=== PATIENT | female | born 1975 | race Hispanic/Latino ===

== ENCOUNTER 2019-01-29 12:37 | Emergency (ER) | payer BC ==
[~2019-01-29] VITALS: Ht 152.4 cm; Wt 144.3 kg
--- OUTSIDE RECORDS SUMMARY | 2019-01-29 12:40 | XMS REPORT | Clinical Summary ---
Author Author [facility] Organization [facility] Address Unknown Phone Unavailable Care Team Providers Care Hvac Installer Name Role Phone PCP Unavailable Allergies No Known Allergies Medications End Date Status Medication Sig Dispensed Refills Start Date Active mirtazapine (REMERON) 30 TK 1 T PO QHS 3 MG tablet 9 Active doxycycline (VIBRAMYCIN) Take 1 Cap by 60 Cap 1 100 MG mouth two 9 capsuleIndications: times daily. Central centrifugal scarring alopecia Active clobetasol (TEMOVATE) Apply 50 mL 3 0.05 % external topically 9 solutionIndications: twice a day Central centrifugal as needed to scarring alopecia scalp Active quetiapine (SEROQUEL) 25 Take 1 Tab by 30 Tab 1 MG tablet mouth 9 nightly. 01/12/2019 Discontinued (*Therapy completed) hydrOXYzine (ATARAX) 10 TK 1 TO 2 TS 0 MG tablet PO QHS PRF 9 ITCHING 01/12/2019 Discontinued (*Therapy completed) sertraline (ZOLOFT) 25 MG TK 1 T PO D 0 tablet 9 01/12/2019 Discontinued (*Therapy completed) busPIRone (BUSPAR) 10 MG TK 1 T PO BID 3 tablet 9 01/12/2019 Discontinued (*Therapy completed) nortriptyline (PAMELOR) TK 1 C PO QHS 3 25 MG capsule 9 01/12/2019 Discontinued (*Therapy completed) clonazepam (KLONOPIN) 0.5 TK 1 T PO QHS 0 MG tablet PRA 9 01/26/2019 Discontinued (*Therapy completed) trazodone (DESYREL) 50 MG Take 3 Tabs 30 Tab 0 tablet by mouth 9 nightly. Take between 1-3 tablets as needed for sleep. Active Problems No known active problems Encounters Care Team Description Date Type Specialty Aram Berg MD Suture/Staple Removal 01/25/2019 Office Visit Dermatology Leni Zelaya MD 01/25/2019 Orders Only Rheumatology Leni Zelaya MD 01/25/2019 Orders Only Rheumatology Leni Zelaya MD Initial Visit 01/20/2019 Office Visit Rheumatology Aram Berg MD 01/20/2019 Orders Only Dermatology Aram Berg MD Skin Check (Hair shedding) 01/15/2019 Office Visit Dermatology Aram Berg MD 01/15/2019 Orders Only Dermatology from Last 3 Months Social History Date Tobacco Use Types Packs/Day Years Used Never Smoker Smokeless Tobacco: Never Used Drinks/Week oz/Week Comments Alcohol Use Not Currently Sex Assigned at Date Recorded Not on file Industry Job Start Date Occupation Not on file Not on file Not on file Travel End Travel History Travel Start No recent travel history available. Last Filed Vital Signs Reading Time Taken Comments Vital Sign 118/84 01/26/2019 10:22 AM JIG BUILDER Blood Pressure 89 01/26/2019 10:22 AM JIG BUILDER Pulse 36.8 C (98.3 F) 01/20/2019 11:20 AM JIG BUILDER Temperature 16 01/26/2019 10:22 AM JIG BUILDER Respiratory Rate 100% 01/20/2019 11:20 AM JIG BUILDER Oxygen Saturation - - Inhaled Oxygen Concentration 64.6 kg (142 lb 6.4 oz) 01/26/2019 10:22 AM JIG BUILDER Weight 162.6 cm (5' 4") 01/26/2019 10:22 AM JIG BUILDER Height 24.44 01/26/2019 10:22 AM JIG BUILDER Body Mass Index Plan of Treatment Health Maintenance Due Date Last Done Comments MAMMOGRAM ANNUAL 1976 TETANUS SHOT (ADULT) 08/20/1991 HIV SCREENING 08/19/1994 CERVICAL CANCER SCREENING 08/19/1997 3 YEAR FOLLOW UP FLU VACCINE > 6 MONTHS Completed 01/13/2019 Procedures Comments Procedure Name Priority Date/Time Associated Diagnosis TSH Routine 01/25/2019 2:01 PM JIG BUILDER T4 FREE Routine 01/25/2019 2:01 PM JIG BUILDER THYROID ANTIBODY GROUP Routine 01/25/2019 SHADE positive (TPO + TG) 2:01 PM JIG BUILDER RPR NON-REFLEX Routine 01/25/2019 SHADE positive QUALITATIVE 2:01 PM JIG BUILDER C-REACTIVE PROTEIN Routine 01/25/2019 SHADE positive 2:01 PM JIG BUILDER COMPREHENSIVE METABOLIC Routine 01/25/2019 SHADE positive PANEL 2:01 PM JIG BUILDER SEDIMENTATION RATE Routine 01/25/2019 SHADE positive MODIFIED WESTERGREN 2:01 PM JIG BUILDER CBC W/AUTO DIFF WITH Routine 01/25/2019 SHADE positive PLATELETS 2:01 PM JIG BUILDER RANDOM URINE Routine 01/25/2019 SHADE positive PROTEIN/CREATININE 2:01 PM JIG BUILDER URINALYSIS, COMPLETE Routine 01/25/2019 SHADE positive W/REFLEX TO CULTURE 2:01 PM JIG BUILDER COMPLEMENT C3 AND C4 Routine 01/25/2019 SHADE positive 2:01 PM JIG BUILDER DERMATOPATHOLOGY REPORT Routine 01/15/2019 12:00 PM JIG BUILDER from Last 3 Months Results * URINALYSIS, COMPLETE W/REFLEX TO CULTURE (01/25/2019 2:01 PM JIG BUILDER) COLOR UA YELLOW YELLOW [facility] CLARITY UA CLEAR CLEAR [facility] SPECIFIC 1.005 1.001 - 1.035 [facility] GRAVITY UA PH UA 7.0 5.0 - 8.0 [facility] GLUCOSE UA NEGATIVE NEGATIVE [facility] BILIRUBIN UA NEGATIVE NEGATIVE [facility] KETONES UA NEGATIVE NEGATIVE [facility] OCCULT BLOOD UA TRACE (A) NEGATIVE [facility] PROTEIN UA NEGATIVE NEGATIVE [facility] NITRITE NEGATIVE NEGATIVE [facility] LEUKOCYTE NEGATIVE NEGATIVE [facility] ESTERASE UA WBC UA 0-5 < OR=5 /HPF [facility] RBC UA NONE SEEN < OR=2 /HPF [facility] SQUAMOUS NONE SEEN < OR=5 /HPF [facility] EPITHELIAL BACTERIA NONE SEEN NONE SEEN /HPF [facility] HYALINE CASTS NONE SEEN NONE SEEN /LPF [facility] REFLEXIVE URINE NO CULTURE INDICATEDComment: [facility] CULTURE Performed at: [facility] [employer] [address] [phone] SHELLEY CARMEN MD Specimen Urine (substance) Resulting Agency Comment Performing Organization Information: Site ID: [facility] Name: [employer] [place] Address: [address] [place] [phone] Director: SHELLEY CARMEN MD Performing Organization Address [facility] Phone Number [place] [phone] * COMPLEMENT C3 AND C4 (01/25/2019 2:01 PM JIG BUILDER) C3 COMPLEMENT 98 83 - 193 mg/dL [facility] C4 COMPLEMENT 26Comment: Performed at: [facility] 15 - 57 mg/dL [facility] [employer] [facility] [address] [address] SHELLEY CARMEN MD Specimen Serum specimen (specimen) Resulting Agency Comment Performing Organization Information: Site ID: [id number] Name: [employer] [facility] [place] Address: [address] [place] [phone] Director: SHELLEY CARMEN MD Performing Organization Address [facility] [place] [address] * RANDOM URINE PROTEIN/CREATININE (01/25/2019 2:01 PM JIG BUILDER) CREATININE 27 20 - 275 mg/dL [facility] URINE URINE PROTEIN NOTE 21 - 161 mg/g creat [facility] Comment: THE PROTEIN VALUE IS LESS THAN 4 MG/DL THEREFORE WE ARE UNABLE TO CALCULATE EXCRETION AND/OR CREATININE RATIO. PROTEIN/CREAT NOTE 0.021 - 0.161 mg/mg [facility] RATIO creat URINE PROTEIN <4 (L)Comment: Performed at: 5 - 24 mg/dL [facility] [employer] [address] [address] SHELLEY CARMEN MD Specimen Urine (substance) Resulting Agency Comment Performing Organization Information: Site ID: [id number] Name: [employer] [facility] [place] Address: [address] [place] [phone] Director: SHELLEY CARMEN MD Performing Organization Address [facility] Phone Number [address] [address] * THYROID ANTIBODY GROUP (TPO + TG) (01/25/2019 2:01 PM JIG BUILDER) THYROGLOBULIN <1 < or=1 IU/mL [facility] ANTIBODY THYROID <1Comment: Performed at: IG <9 IU/mL [facility] PEROXIDASE AB [facility] [address] [place] [address] SHELLEY CARMEN MD Specimen Serum specimen (specimen) Resulting Agency Comment Performing Organization Information: Site ID: Name: [facility] Address: [address] [place] [phone] Director: SHELLEY CARMEN MD Performing Organization Address [facility] Phone Number [facility] [phone] [place] [address] * RPR NON-REFLEX QUALITATIVE (01/25/2019 2:01 PM JIG BUILDER) Pathologist [facility] [place] RPR (DX) W/REFL NON-REACTIVE NON-REACTIVE [facility] TITER AND Comment: CONFIRMATORY REPORT COMMENT: TESTING FASTING:NO Performed at: [facility] [address] [phone] SHELLEY CARMEN MD Specimen Serum specimen (specimen) Resulting Agency Comment Performing Organization Information: Site ID: [id number] Name: [employer] [facility] [place] Address: [address] [place] [phone] Director: SHELLEY CARMEN MD Performing Organization Address [facility] Phone Number [facility] [address] [place] [address] * SEDIMENTATION RATE MODIFIED WESTERGREN (01/25/2019 2:01 PM JIG BUILDER) [facility] ERYTHROCYTE 11Comment: Performed at: [facility] < OR=20 mm/h [facility] SEDIMENTATION [employer] [facility] [place] [address] [address] [facility] [address] SHELLEY CARMEN MD Specimen Blood (substance) Resulting Agency Comment Performing Organization Information: Site ID: [id number] Name: [employer] [facility] [place] Address: [address] [place] [phone] Director: SHELLEY CARMEN MD Performing Organization Address [facility] Phone Number [facility] [address] [place] [address] * CBC W/AUTO DIFF WITH PLATELETS (01/25/2019 2:01 PM JIG BUILDER) [facility] WHITE BLOOD 8.1 3.8 - 10.8 [facility] CELL COUNT Thousand/uL RED BLOOD CELL 4.71 3.80 - 5.10 [facility] COUNT Million/uL HEMOGLOBIN 14.3 11.7 - 15.5 g/dL [facility] HEMATOCRIT 42.1 35.0 - 45.0 % [facility] MEAN 89.4 80.0 - 100.0 fL [facility] CORPUSCULAR VOLUME MEAN 30.4 27.0 - 33.0 pg [facility] CORPUSCULAR HEMOGLOBIN MEAN 34.0 32.0 - 36.0 g/dL [facility] CORPUSCULAR HEMOGLOBIN CONC RED CELL 11.9 11.0 - 15.0 % [facility] DISTRIBUTION WIDTH PLATELET COUNT 346 140 - 400 [facility] Thousand/uL MEAN PLATELET 11.7 7.5 - 12.5 fL [facility] VOLUME NEUTROPHILS 5,775 1,500 - 7,800 [facility] ABSOLUTE COUNT cells/uL LYMPHOCYTES 1,280 850 - 3,900 cells/uL [facility] ABSOLUTE COUNT MONOCYTES 745 200 - 950 cells/uL [facility] ABSOLUTE COUNT EOSINOPHILS 243 15 - 500 cells/uL [facility] ABSOLUTE COUNT BASOPHILS 57 0 - 200 cells/uL [facility] ABSOLUTE COUNT NEUTROPHILS % 71.3 % [facility] LYMPHOCYTES % 15.8 % [facility] MONOCYTES % 9.2 % [facility] EOSINOPHILS % 3.0 % [facility] BASOPHILS % 0.7Comment: Performed at: [facility] % [facility] [address] [address] SHELLEY CARMEN MD Specimen Blood (substance) Resulting Agency Comment Performing Organization Information: Site ID: [facility] Name: [employer] [facility] [place] Address: [address] [place] [phone] Director: SHELLEY CARMEN MD Performing Organization Address [facility] Phone Number [address] [address] * C-REACTIVE PROTEIN (01/25/2019 2:01 PM JIG BUILDER) C-REACTIVE 0.8Comment: Performed at: [facility] <8.0 mg/L [facility] PROTEIN [employer] [facility] [address] [phone] SHELLEY CARMEN MD Specimen Serum specimen (specimen) Resulting Agency Comment Performing Organization Information: Site ID: [facility] Name: [employer] [facility] [place] Address: [address] [place] [phone] Director: SHELLEY CARMEN MD Performing Organization Address [facility] Phone Number [address] [address] * TSH (01/25/2019 2:01 PM JIG BUILDER) Pathologist [facility] [place] TSH, 3RD 1.09 mIU/L [facility] GENERATION Comment: Reference Range > or=20 Years 0.40-4.50 Ranges First trimester 0.26-2.66 Second trimester 0.55-2.73 Third trimester 0.43-2.91 Performed at: [facility] [address] [address] SHELLEY CARMEN MD Specimen Serum specimen (specimen) Resulting Agency Comment Performing Organization Information: Site ID: [facility] Name: [facility] [facility] [place] Address: [address] [place] [phone] Director: SHELLEY CARMEN MD Performing Organization Address [facility] [place] [address] * T4 FREE (01/25/2019 2:01 PM JIG BUILDER) [facility] FREE T4 1.2Comment: Performed at: [facility] 0.8 - 1.8 ng/dL [employer] [facility] [address] [address] SHELLEY CARMEN MD Specimen Serum specimen (specimen) Resulting Agency Comment Performing Organization Information: Site ID: [facility] Name: [facility] [place] Address: [address] [place] [phone] Director: SHELLEY CARMEN MD Performing Organization Address [facility] [place] [address] * COMPREHENSIVE METABOLIC PANEL (01/25/2019 2:01 PM JIG BUILDER) [facility] GLUCOSE 81 65 - 139 mg/dL [facility] Comment: Non-fasting reference interval BLOOD UREA 13 7 - 25 mg/dL [facility] NITROGEN CREATININE 0.88 0.50 - 1.10 mg/dL [facility] BUN/CREAT RATIO NOT APPLICABLE 6 - 22 (calc) [facility] SODIUM 140 135 - 146 mmol/L [facility] POTASSIUM 4.3 3.5 - 5.3 mmol/L [facility] CHLORIDE 103 98 - 110 mmol/L [facility] CO2 28 20 - 32 mmol/L [facility] CALCIUM 9.9 8.6 - 10.2 mg/dL [facility] PROTEIN TOTAL 7.1 6.1 - 8.1 g/dL [facility] ALBUMIN 4.2 3.6 - 5.1 g/dL [facility] GLOBULINS, 2.9 1.9 - 3.7 g/dL [facility] SERUM, TOTAL (calc) A/G RATIO 1.4 1.0 - 2.5 (calc) [facility] BILIRUBIN TOTAL 0.3 0.2 - 1.2 mg/dL [facility] ALKALINE 47 33 - 115 U/L [facility] PHOSPHATASE AST (SGOT) 16 10 - 30 U/L [facility] ALT (SGPT) 13Comment: Performed at: [facility] 6 - 29 U/L [facility] [address] [phone] SHELLEY CARMEN MD Specimen Serum specimen (specimen) Resulting Agency Comment Performing Organization Information: Site ID: [facility] Name: [facility] [place] Address: [address] [place] [phone] Director: SHELLEY CARMEN MD Performing Organization Address City/State/Zipcode Phone Number [place] [phone] * DERMATOPATHOLOGY REPORT (01/15/2019 12:00 PM JIG BUILDER) AP RESULTS AP results [facility] Comment: . SPECIMEN SUBMITTED: Skin; left scalp, punch biopsy DIAGNOSIS: Left scalp, skin punch biopsy - Scarring alopecia, favor central centrifugal cicatricial alopecia HISTORY: TE with brien. derm. versus other alopecia. GROSS DESCRIPTION: The case is received in one part, labeled with the patient's name "Brandie Todd" and accession number "[id number]", accompanied by a requisition slip labeled with the same patient name and accession number. Received in formalin labeled "left scalp" is a 0.4 cm in diameter by 0.3 cm in depth punch of rehman skin. The margin is inked agatha. The specimen is entirely submitted as follows: SECTION CODE: A1 - bisected epidermis A2 - subcutaneous tissue (ii) MICROSCOPIC DESCRIPTION: Sections reveal skin with dermal fibrosis around the follicles, extending into the deep dermis. There are exposed hair shafts in focally, in the dermis and in the subcutis. IMMUNOHISTOCHEMISTRY/SPECIAL STAIN SUMMARY: The results of immunohistochemical studies and/or special stains are as follows: Elastin - Focal loss of staining around hair follicle in a somewhat cylindrical pattern By this electronic signature, I attest that as senior pathologist, I examined the relevant specimen and rendered the diagnosis Final Diagnosis performed by Stephon Corrigan MD Electronically Signed 01/18/2019 at 12:08 PM CPT:65174, 16313 Specimen Other (qualifier value) Performing Organization Address City/State/Zipcode Phone Number [place] from Last 3 Months Insurance Type Payer Benefit Subscriber ID Effective Phone Address Plan / Dates Group PPO BLUE CROSS BLUE SHIELD OUT OF xxxxxxxxx [id number] - [facility] - [facility] [id number]
--- OUTSIDE RECORDS SUMMARY | 2019-01-29 12:41 | XMS REPORT ---
Author [facility] Address Unknown Phone Unavailable Care Team Providers Care Weaving Professor Name Role Phone Unavailable Unavailable Payers Payer Name Policy Type Policy Number Effective Date Expiration Date Problems This patient has no known problems. Allergies, Adverse Reactions, Alerts Allergy Name Allergy Type Status Severity Reaction(s) Onset Date Inactive Date Treating Clinician Comments No Known Drug Intolerances DA Active U 2012-01-31 00:00:00 Medications This patient has no known medications. Results Test Description Test Time Test Comments Text Results Atomic Results Result Comments US BREAST COMPLETE UNL LT/RT CLINICAL INDICATION: N63 Unspecified lump in breastHISTORY: 41-year-old female who was asked to return for additional imaging based upon the screening study dated 04/30/2017. That exam showed a nod ular density in the left breast for which further evaluation was requested. Currently, the patient is asymptomatic.TECHNIQUE: Realtime and Doppler color breast imaging are performed on the [facility] CEIN . Radial and antiradial imaging is accomplished in all quadrants. Imaging of the axillary regions performed. COMPARISON STUDY: No prior examination. Sonography of the left breast shows several clustered and single simple cysts. A subareolar cyst is identified which may represent the cyst which may contains milk of calcium. Two cysts are noted in the outer aspect of the left breast, at the 2 o clock and 3 o clock position either of which may represent the nodular asymmetry seen at mammography. Additional cysts are noted at the 12 o clock, 1 o clock and 6 o clock positions. No suspicious hypoechoic mass or solid nodule is observed. The left axilla is unremarkable.IMPRESSION:Benign findings. Left breast cysts and milk of calcium calcifications. RECOMMENDATION: Follow up screening mammogram in 1 year. Category: BIRADS 2 - Benign. For internal use only. N:11 Mammo Digital Mammography Diagnostic, Unilat CLINICAL INDICATION: N63 Unspecified lump in breastHISTORY: 41-year-old female who was asked to return for additional imaging based upon the screening study dated 04/30/2017. That exam showed a nodular density in the left breast for which further evaluation was requested. Currently, the patient is asymptomatic.MODALITY: Siemens Novation Full Field Digital MammographyTECHNIQUE: Digital acquisition of the left breast is performed on the ACR accredited Full Field Digital Mammography Unit. Computer Assisted Detection (CAD) is then accomplished using R2 Technology. Full compression LM, spot compression MLO and spot magnification LM and CC views of the left breast were obtained.FINDINGS:COMPARISON STUDY: 04/30/2017.The breasts are heterogeneously dense. This may lower the sensitivity of mammography. With the additional imaging, the nodular asymmetry is noted, probably near the 3 o clock position, 4-5 cm from the nipple. Also demonstrated on the magnification views are what appear to be milk of calcium in the retroareolar portion of the left breast. Other scattered benign-appearing calcifications are noted. Ultrasound findings: Sonography of the left breast shows several clustered and single simple cysts. A subareolar cyst is identified which may represent the cyst which may contain milk of calcium. Two cysts are noted in the outer aspect of the left breast, at the 2 o clock and 3 o clock position either of which may represent the nodular asymmetry seen at mammography. Additional cysts are noted at the 12 o clock, 1 o clock and 6 o clock positions. No suspicious hypoechoic mass or solid nodule is observed. The left axilla is unremarkable.IMPRESSION:Benign findings. Left breast cysts and milk of calcium calcifications. RECOMMENDATION: Follow up screening mammogram in 1 year.Category: BIRADS 2 - Benign. For internal use only. N:11 Mammo Digital Mammography Screening CLINICAL INDICATION: This is a routine annual screening mammogram. The patient has no complaints.MODALITY: Siemens Inspiration Full Field Digital MammographyTECHNIQUE: Digital acquisition of th e breasts is performed on the ACR accredited Full Field Digital Mammography Unit. Computer Assisted Detection (CAD) is then accomplished using R2 Technology. Imaging of the bilateral breasts is performed.FINDINGS:COMPARISON STUDY: NoneThe breasts are heterogeneously dense. This may lower the sensitivity of mammography. There is a nodular density in the left breast posterior depth on the MLO view only. There are no suspicious masses, calcifications or architectural distortion in the right breast.IMPRESSION:Nodular density in the left breast. No mammographic evidence of malignancy in the right breast.RECOMMENDATION: Additional mammographic images and ultrasound of the left breast are recommended for further evaluation.Category: BIRADS 0 - Incomplete. Needs additional imaging for evaluation. For internal use only A:0
[2019-01-29] MEDS ORDERED: SODIUM CHLORIDE 0.9% 1000ML 1,000 ML IV STA (12:55)
[2019-01-29] MEDS ORDERED: KETOROLAC TROMETHAMINE 30 MG/ML VIAL IV ONE (13:00)
[2019-01-29] MEDS ORDERED: ONDANSETRON HCL INJ 2MG/ML 2ML 2 MG/ML VIAL IV ONE (13:00)
[2019-01-29] MEDS ORDERED: ONDANSETRON HCL INJ 2MG/ML 2ML 2 MG/ML VIAL ONE (13:35)
[2019-01-29] MEDS ORDERED: SODIUM CHLORIDE 0.9% 1000ML 1,000 ML ONE (13:36)
[2019-01-29] MEDS ORDERED: KETOROLAC TROMETHAMINE 30 MG/ML VIAL ONE (13:36)
--- NOTE | 2019-01-29 14:16 | Diagnostic Imaging Report ---
EXAM: CT Abdomen and Pelvis without contrast INDICATION: Flank pain. COMPARISON: None. TECHNIQUE: Abdomen and pelvis were scanned utilizing a multidetector helical scanner from the lung base to the pubic symphysis without IV or oral contrast. Coronal and sagittal reformations were obtained. Renal stone protocol was performed. COMPLICATIONS: None RADIATION DOSE: Total DLP: 1041.8 mGy*cm Estimated effective dose: (DLP x 0.015 x size factor) mSv CTDIvol has been reviewed. It is below the limits set by the Radiation Protocol Committee (RPC). FINDINGS: LINES and TUBES: None. LOWER THORAX: Unremarkable HEPATOBILIARY: No evidence of focal lesion. No biliary ductal dilation. GALLBLADDER: Status post cholecystectomy. SPLEEN: No splenomegaly. PANCREAS: No focal masses or ductal dilatation. ADRENALS: No adrenal nodules KIDNEYS/URETERS: Kidneys enhance symmetrically. No evidence of hydronephrosis, solid mass, or stone. GI TRACT: No evidence of wall thickening or distension. Appendix is normal. Small hiatal hernia. Moderate amount of stool in the colon. PELVIC ORGANS/BLADDER: Decompressed bladder. There is a 5 cm right adnexal cyst (series 3, image 137; 12 HU). LYMPH NODES: No lymphadenopathy. Nonspecific 0.6 cm short axis pericardiac lymph node (series 3, image 13). VESSELS: Unremarkable. PERITONEUM / RETROPERITONEUM: No free air or fluid. BONES AND SOFT TISSUES: Unremarkable. CONCLUSION: No evidence of nephrolithiasis. A 5 cm right adnexal cyst. Suggest pelvic ultrasound for further evaluation. Signed by: Dr. Gris Vegas MD on 01/29/2019 2:13 PM
--- NOTE | 2019-01-29 14:29 | NUR ---
Ultrasound will be here in an hour.
[2019-01-29] MEDS ORDERED: PROMETHAZINE 25MG/ NS 50ML (IV) IV ONE (16:15)
[2019-01-29] MEDS ORDERED: IBUPROFEN 400 MG TAB PO ONE (16:15)
[2019-01-29] MEDS ORDERED: HYDROCODONE/APAP 5MG-325MG TAB ONE (16:18)
[2019-01-29] MEDS ORDERED: IBUPROFEN 200 MG TAB ONE (16:21)
[2019-01-29] MEDS ORDERED: PROMETHAZINE HCL (IM) 25 MG/ML VIAL ONE (16:21)
[2019-01-29] MEDS ORDERED: SODIUM CHLORIDE 0.9% 50ML 50 ML ONE (16:22)
--- NOTE | 2019-01-29 17:23 | Diagnostic Imaging Report ---
HISTORY : Pelvic pain COMPARISON : CT of the abdomen and pelvis performed 01/29/2019 Comment: Ultrasound examination of the pelvis was performed transabdominally and transvaginally. The uterus is are changes in echotexture. The uterus measures 9.1 x 5.6 x 6.4 cm. The endometrial stripe measures 1.5 cm in maximal thickness which is normal in the secretory phase. There is a 1.4 x 1.2 x 1.3 cm both cyst. The right ovary measures 6.1 x 6.3 x 5.2 cm and contains an anechoic 5.2 x 4.8 x 5.2 meters cyst. The left ovary measures 2.4 x 1.2 x 1.7 cm. Both ovaries demonstrate normal color Doppler flow and spectral waveforms. There is no evidence of fluid in the cul-de-sac. IMPRESSION : Simple right ovarian cyst. Signed by: Rasheed Greenberg MD on 01/29/2019 5:19 PM
[2019-01-29 17:42] VITALS: BP 114/75
== END 2019-01-29 17:52 | disposition home or self-care (01) ==
LOC: FSED 12:37
DX: R10.31 Right lower quadrant pain (principal); M54.5 Low back pain; N83.201 Unspecified ovarian cyst, right side; E03.9 Hypothyroidism, unspecified
CPT/HCPCS: 74176; 76856; 80053; 81003; 84484; 85025; 96374; 96375; 99284; J1885; J2405; J2550; J7030

== ENCOUNTER 2021-04-27 14:45 | Emergency (ER) | payer BC ==
[~2021-04-27] VITALS: Ht 165.1 cm; Wt 155.6 kg
[2021-04-27] MEDS ORDERED: LOSARTAN POTAS100 MG PO (15:15)
[2021-04-27] MEDS ORDERED: LEVOTHYROXINE175 MC1 PO (15:15)
[2021-04-27] MEDS ORDERED: OMEPRAZOLE40 MG PO (15:15)
[2021-04-27] MEDS ORDERED: SODIUM CHLORIDE 0.9% 1000ML 1,000 ML IV STA (15:16)
[2021-04-27] MEDS ORDERED: ONDANSETRON HCL INJ 2MG/ML 2ML 2 MG/ML VIAL IV ONE (15:30)
[2021-04-27] MEDS ORDERED: FAMOTIDINE 20 MG/2 ML VIAL IV ONE ×2 (15:30→15:49)
[2021-04-27] MEDS ORDERED: KETOROLAC TROMETHAMINE 30 MG/ML VIAL IV ONE (15:30)
[2021-04-27] MEDS ORDERED: SODIUM CHLORIDE 0.9% 50ML 50 ML ONE (15:41)
[2021-04-27] MEDS ORDERED: IOPAMIDOL 370 MG/ML 200 ML INFUS..BTL INJ ONE (15:42)
[2021-04-27] MEDS ORDERED: ONDANSETRON HCL INJ 2MG/ML 2ML 2 MG/ML VIAL ONE (15:48)
[2021-04-27] MEDS ORDERED: SODIUM CHLORIDE 0.9% 1000ML 1,000 ML ONE (15:49)
[2021-04-27] MEDS ORDERED: KETOROLAC TROMETHAMINE 30 MG/ML VIAL ONE (15:49)
[2021-05-01] MEDS ORDERED: METFORMIN HCL500 MG PO (11:17)
[2021-05-01] MEDS ORDERED: BREZTRI AEROS10.7 GM INH (11:22)
== END 2021-04-27 16:59 | disposition home or self-care (01) ==
LOC: FSED 14:55
DX: R10.31 Right lower quadrant pain (principal); I10 Essential (primary) hypertension; E03.9 Hypothyroidism, unspecified; K21.9 Gastro-esophageal reflux disease without esophagitis; E66.9 Obesity, unspecified
CPT/HCPCS: 74177; 80053; 81003; 81025; 85025; 96374; 96375; 99284; J1885; J2405; J7030; Q9967

== ENCOUNTER → 2021-05-02 | Day surgery (SDC) | payer BC ==
[~2021-05-02] MED LIST: BREZTRI AEROS10.7 GM INH; FENTANYL CITRATE/PF 100MCG/2 ML INJ ONE; LEVOTHYROXINE175 MC1 PO; LIDOCAINE HCL 2% LOCAL INJ 5 ML SDV VIAL INJ ONE; LOSARTAN POTAS100 MG PO; METFORMIN HCL500 MG PO; MIDAZOLAM HCL 2 MG/2 ML VIAL ONE; OMEPRAZOLE40 MG PO; PROPOFOL IV EMULSION 10 MG/ML 20 ML VIAL ONE
[2021-05-02 16:45] VITALS: BP 122/72
== END | disposition home or self-care (01) ==
LOC: OR 13:25
PROVIDERS: ATTEND Internal Medicine Gastroenterology
DX: K29.70 Gastritis, unspecified, without bleeding (principal); D13.2 Benign neoplasm of duodenum; K20.90 Esophagitis, unspecified without bleeding; K44.9 Diaphragmatic hernia without obstruction or gangrene; K31.89 Other diseases of stomach and duodenum; K21.9 Gastro-esophageal reflux disease without esophagitis; K59.09 Other constipation; Z71.3 Dietary counseling and surveillance; J45.909 Unspecified asthma, uncomplicated; I10 Essential (primary) hypertension; E03.9 Hypothyroidism, unspecified; E66.01 Morbid (severe) obesity due to excess calories; Z88.0 Allergy status to penicillin; Z01.810 Encounter for preprocedural cardiovascular examination; Z01.812 Encounter for preprocedural laboratory examination; Z20.822 Contact with and (suspected) exposure to COVID-19; Z79.84 Long term (current) use of oral hypoglycemic drugs; Z79.899 Other long term (current) drug therapy; Z68.43 Body mass index [BMI] 50.0-59.9, adult; Z86.16 Personal history of COVID-19
CPT/HCPCS: 36415; 43239; 81025; 82948; 93005; C9113; J2001; J2250; J2704; J3010; U0002

== ENCOUNTER 2021-11-30 13:10 | Emergency (ER) | payer BC ==
[~2021-11-30] VITALS: Ht 165.1 cm; Wt 152.0 kg
[~2021-11-30 13:10] MED LIST changes: -FENTANYL CITRATE/PF 100MCG/2 ML INJ ONE; -LIDOCAINE HCL 2% LOCAL INJ 5 ML SDV VIAL INJ ONE; -MIDAZOLAM HCL 2 MG/2 ML VIAL ONE; -PROPOFOL IV EMULSION 10 MG/ML 20 ML VIAL ONE
[2021-11-30] MEDS ORDERED: ALBUTEROL/IPRATROPIUM 3 ML NEB NEB ONE (13:45)
[2021-11-30] MEDS ORDERED: IBUPROFEN 400 MG TAB PO ONE (13:45)
[2021-11-30] MEDS ORDERED: ONDANSETRON HCL 4 MG ORAL DISINTEGRATING TAB PO ONE (13:45)
[2021-11-30] MEDS ORDERED: ACETAMINOPHEN 325 MG TAB PO ONE (13:45)
[2021-11-30] MEDS ORDERED: PREDNISONE 20 MG TAB PO ONE (14:00)
[2021-11-30] MEDS ORDERED: IBUPROFEN 400 MG TAB ONE (14:11)
[2021-11-30] MEDS ORDERED: ACETAMINOPHEN 325 MG TAB ONE (14:11)
[2021-11-30] MEDS ORDERED: PREDNISONE 20 MG TAB ONE (14:11)
[2021-11-30] MEDS ORDERED: ALBUTEROL/IPRATROPIUM 3 ML NEB ONE (14:12)
[2021-11-30] MEDS ORDERED: ONDANSETRON ODT4 MG PO (15:34)
[2021-11-30] MEDS ORDERED: COMPACT COMPRE1 EACH INH (15:34)
[2021-11-30] MEDS ORDERED: ALBUTEROL2.5 MG/3 M INH (15:34)
[2021-11-30] MEDS ORDERED: PROAIR HFA INH8.5 GM INH (15:34)
[2021-11-30] MEDS ORDERED: MUCINEX DM ER1 EACH PO (15:34)
[2021-11-30] MEDS ORDERED: PREDNISONE20 MG PO (15:34)
[2021-11-30] MEDS ORDERED: IBUPROFEN800 MG PO (15:34)
[2021-11-30 15:44] VITALS: BP 140/82
== END 2021-11-30 15:46 | disposition home or self-care (01) ==
LOC: FSED 13:42
DX: J40 Bronchitis, not specified as acute or chronic (principal); J45.909 Unspecified asthma, uncomplicated; J02.9 Acute pharyngitis, unspecified; R11.0 Nausea; Z20.822 Contact with and (suspected) exposure to COVID-19; Z88.0 Allergy status to penicillin; E11.9 Type 2 diabetes mellitus without complications; I10 Essential (primary) hypertension; E03.9 Hypothyroidism, unspecified; K21.9 Gastro-esophageal reflux disease without esophagitis; Z79.84 Long term (current) use of oral hypoglycemic drugs
CPT/HCPCS: 71046; 80307; 81003; 83518; 87400; 87420; 99283; J7512; U0002